=== PATIENT | female | born 2005 | race Caucasian/White ===

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

== ENCOUNTER 2024-08-04 16:37 | Emergency (ER) | payer OTHER ==
[2024-08-04] MEDS ORDERED: Ibuprofen 200 MG TAB ONE (19:05)
== END 2024-08-04 19:40 | disposition home or self-care (01) ==
LOC: CSHERS 16:37
DX: B34.9 Viral infection, unspecified (principal)
CPT/HCPCS: 99283